=== PATIENT | female | born 1955 | race African-American/Black ===

== ENCOUNTER 2017-08-16 16:35 | Emergency (ER) | payer MEDICAID ==
[~2017-08-16] VITALS: Ht 165.1 cm; Wt 78.0 kg
[~2017-08-16 16:35] MED LIST: BACL-141 PO; DEXA4TAB PO; METH2.5T PO; NAPR500T PO; PHEN100C4 PO; TIZA4CAP6 PO; TOPI50TA24 PO
[2017-08-16 20:03] LABS: BASOPHILS % 0.9 % (0.0-2.0); EOSINOPHILS % 1.4 % (0.0-5.0); HEMATOCRIT. 37.5 % (36.0-48.0); HEMOGLOBIN. 12.5 g/dL (12.0-16.0); LYMPHOCYTES % 14.7 % (20.0-50.0); MEAN CORPUSCULAR HEMOGLOBIN 23.5 pg (28.0-32.0); MEAN CORPUSCULAR VOLUME 70.4 fL (81.0-99.0); MONOCYTES % 7.7 % (2.0-8.0); NEUTROPHILS % 75.3 % (40.0-76.0); PLATELET 218 x1000/uL (130-400); RED BLOOD CELL COUNT 5.33 mill/uL (4.2-5.4); RED CELL DISTRIBUTION WIDTH 16.5 % (11.6-14.6)
[2017-08-16 20:09] LABS: INR 1.4; PROTHROMBIN TIME 14.3 sec (9.4-11.6)
[2017-08-16 20:12] LABS: CARBON DIOXIDE 29 mEq/L (21-32); CHLORIDE 106 mEq/L (98-107)
[2017-08-16 20:36] LABS: CLARITY URINE CLOUDY (CLEAR); COLOR URINE YELLOW (YELLOW); GLUCOSE URINE NEGATIVE (NEGATIVE); KETONES URINE NEGATIVE (NEGATIVE); LEUKOCYTE ESTERASE URINE 3+ (NEGATIVE); NITRITE URINE NEGATIVE (NEGATIVE); OCCULT BLOOD URINE NEGATIVE (NEGATIVE); PH URINE 6.5 (4.5-8.0); PROTEIN URINE NEGATIVE (NEGATIVE); SPECIFIC GRAVITY URINE 1.013 (1.005-1.030)
[2017-08-16] MEDS ORDERED: CEFTRIAXONE 1 G PREMIX 50 ML IV ONE (21:15)
[2017-08-17 00:43] VITALS: BP 124/76
== END 2017-08-17 00:45 | disposition home or self-care (01) ==
LOC: ER 16:35 → CANBEDREQ 08-17 01:34
DX: N39.0 Urinary tract infection, site not specified (principal)
CPT/HCPCS: 36415; 71010; 80053; 81001; 83605; 85025; 85610; 87040; 87077; 87086; 87186; 93005; 96365; 99285; J0696; Z7610

== ENCOUNTER 2017-08-22 07:35 | Inpatient (IN) | payer MEDICAID ==
[2017-08-22] VITALS (32 sets, daily range): BP systolic 109–145; BP diastolic 66–101
[~2017-08-22] VITALS: Ht 167.6 cm; Wt 84.4 kg
[2017-08-22] MEDS ORDERED: SODIUM CHLORIDE 0.9% 1,000 ML IV ONE (08:33)
[2017-08-22 08:42] LABS: MEAN CORPUSCULAR HEMOGLOBIN 24.2 pg (28.0-32.0); MEAN CORPUSCULAR VOLUME 70.9 fL (81.0-99.0); MEAN PLATELET VOLUME 8.9 fl (7.4-10.4); PLATELET 189 x1000/uL (130-400); RED BLOOD CELL COUNT 1.77 mill/uL (4.2-5.4)
[2017-08-22 08:49] LABS: INR 1.6; PROTHROMBIN TIME 16.7 sec (9.4-11.6)
[2017-08-22 08:51] LABS: HEMATOCRIT. 12.5 % (36.0-48.0); HEMOGLOBIN. 4.3 g/dL (12.0-16.0)
[2017-08-22 08:55] LABS: CARBON DIOXIDE 23 mEq/L (21-32); CHLORIDE 104 mEq/L (98-107)
[2017-08-22 09:23] LABS: PLATELET ESTIMATE NORMAL
[2017-08-22 14:04] LABS: HEMOGLOBIN. 7.1 g/dL (12.0-16.0); MEAN CORPUSCULAR HEMOGLOBIN 25.9 pg (28.0-32.0); MEAN CORPUSCULAR VOLUME 77.2 fL (81.0-99.0); PLATELET 151 x1000/uL (130-400); RED BLOOD CELL COUNT 2.72 mill/uL (4.2-5.4); RED CELL DISTRIBUTION WIDTH 19.4 % (11.6-14.6)
[2017-08-22 14:21] LABS: NUCLEATED RED BLOOD CELLS 4 /100 WBC; PLATELET ESTIMATE NORMAL
[2017-08-22] MEDS ORDERED: ONDANSETRON HCL 4MG/2ML VIAL IV PRN (15:45)
[2017-08-22] MEDS ORDERED: IPRATROPIUM/ALBUTEROL 0.5-3(2.5)MG/3ML NEB INH PRN (15:45)
[2017-08-22] MEDS ORDERED: NICOTINE 21MG PATCH TD ONE (16:00)
[2017-08-22] MEDS: PANTOPRAZOLE SODIUM 40 MG/VIAL IV SCH (16:32)
[2017-08-22] MEDS: SODIUM CHLORIDE 0.9% 1,000 ML IV SCH (16:34)
[2017-08-22 17:32] LABS: HEMATOCRIT 20.7 % (36.0-48.0)
[2017-08-22 18:00] LABS: CREATINE KINASE 2487 IU/L (26-192)
[2017-08-22] MEDS: NICOTINE 21MG PATCH TD SCH (18:29)
[2017-08-22] MEDS: CEFTRIAXONE 2 G in DEXTROSE 5% WATER 50 ML IV SCH (18:29)
[2017-08-22 19:48] LABS: CLARITY URINE CLOUDY (CLEAR); COLOR URINE YELLOW (YELLOW); GLUCOSE URINE NEGATIVE (NEGATIVE); KETONES URINE TRACE (NEGATIVE); LEUKOCYTE ESTERASE URINE 2+ (NEGATIVE); NITRITE URINE NEGATIVE (NEGATIVE); OCCULT BLOOD URINE 3+ (NEGATIVE); PH URINE 5.5 (4.5-8.0); PROTEIN URINE 1+ (NEGATIVE); UROBILINOGEN URINE 0.2 E.U./dL (0.2-1.0)
[2017-08-22 20:29] LABS: *AMPHETAMINES SCREEN URINE NEGATIVE (NEGATIVE); *BARBITURATES SCREEN URINE NEGATIVE (NEGATIVE); *BENZODIAZEPINES SCREEN URINE PRESUMTIVE POSITIVE (NEGATIVE); *COCAINE SCREEN URINE NEGATIVE (NEGATIVE); CANNABINOID URINE SCREEN NEGATIVE (NEGATIVE); METHADONE URINE SCREEN NEGATIVE (NEGATIVE); OPIATES URINE SCREEN PRESUMTIVE POSITIVE (NEGATIVE); PHENCYCLIDINE URINE SCREEN NEGATIVE (NEGATIVE)
[2017-08-22 23:25] LABS: HEMATOCRIT 21.6 % (36.0-48.0); HEMOGLOBIN 7.6 g/dL (12.0-16.0)
[2017-08-22 23:48] LABS: CREATINE KINASE MB FRACTION 8.1 ng/mL (0.5-3.6)
[2017-08-22 23:55] LABS: TROPONIN I 0.74 ng/mL (0.00-0.04)
[2017-08-23] VITALS (62 sets, daily range): BP systolic 113–162; BP diastolic 65–106
[2017-08-23 06:16] LABS: HEMATOCRIT. 22.3 % (36.0-48.0); HEMOGLOBIN. 7.5 g/dL (12.0-16.0); MEAN CORPUSCULAR VOLUME 79.9 fL (81.0-99.0); MEAN PLATELET VOLUME 8.6 fl (7.4-10.4); PLATELET 141 x1000/uL (130-400); RED BLOOD CELL COUNT 2.79 mill/uL (4.2-5.4); RED CELL DISTRIBUTION WIDTH 19.8 % (11.6-14.6)
[2017-08-23 07:06] LABS: CREATINE KINASE MB FRACTION 7.2 ng/mL (0.5-3.6)
[2017-08-23 07:39] LABS: TROPONIN I 0.52 ng/mL (0.00-0.04)
[2017-08-23 09:40] LABS: HEMATOCRIT 23.3 % (36.0-48.0); HEMOGLOBIN 7.7 g/dL (12.0-16.0)
[2017-08-23] MEDS ORDERED: ACETAMINOPHEN 650MG/20.3ML UDC PO PRN (09:45)
[2017-08-23] MEDS: ACETAMINOPHEN 325MG TABLET PO PRN ×2 (09:59→23:56)
[2017-08-23] MEDS: PANTOPRAZOLE SODIUM 40 MG/VIAL IV SCH (09:59)
[2017-08-23 12:08] LABS: T4 FREE 0.84 ng/dL (0.76-1.46)
[2017-08-23 12:17] LABS: HEMATOCRIT 23.1 % (36.0-48.0); HEMOGLOBIN 7.7 g/dL (12.0-16.0)
[2017-08-23 14:30] LABS: NUCLEATED RED BLOOD CELLS 7 /100 WBC
[2017-08-23 14:31] LABS: PLATELET ESTIMATE NORMAL
[2017-08-23 16:47] LABS: CREATINE KINASE MB FRACTION 4.4 ng/mL (0.5-3.6); TROPONIN I 0.28 ng/mL (0.00-0.04)
[2017-08-23] MEDS: CEFTRIAXONE 2 G in DEXTROSE 5% WATER 50 ML IV SCH (17:37)
[2017-08-23] MEDS: NICOTINE 21MG PATCH TD SCH (17:38)
[2017-08-23] MEDS: SODIUM CHLORIDE 0.9% 1,000 ML IV SCH (23:28)
[2017-08-24] VITALS (71 sets, daily range): BP systolic 116–155; BP diastolic 63–115
[2017-08-24 01:22] LABS: CREATINE KINASE MB FRACTION 2.7 ng/mL (0.5-3.6); TROPONIN I 0.22 ng/mL (0.00-0.04)
[2017-08-24 05:23] LABS: HEMATOCRIT. 21.9 % (36.0-48.0); HEMOGLOBIN. 7.4 g/dL (12.0-16.0); MEAN CORPUSCULAR HEMOGLOBIN 27.2 pg (28.0-32.0); MEAN CORPUSCULAR VOLUME 80.9 fL (81.0-99.0); MEAN PLATELET VOLUME 8.4 fl (7.4-10.4); PLATELET 167 x1000/uL (130-400); RED BLOOD CELL COUNT 2.71 mill/uL (4.2-5.4)
[2017-08-24 06:11] LABS: CARBON DIOXIDE 27 mEq/L (21-32); CHLORIDE 109 mEq/L (98-107); CREATINE KINASE MB FRACTION 2.6 ng/mL (0.5-3.6); TROPONIN I 0.19 ng/mL (0.00-0.04)
[2017-08-24 06:21] LABS: CREATINE KINASE 1127 IU/L (26-192)
[2017-08-24] MEDS: PANTOPRAZOLE SODIUM 40 MG/VIAL IV SCH (09:19)
[2017-08-24 12:53] LABS: NUCLEATED RED BLOOD CELLS 10 /100 WBC; PLATELET ESTIMATE NORMAL
[2017-08-24 17:45] LABS: HEMATOCRIT. 27.9 % (36.0-48.0); HEMOGLOBIN. 9.5 g/dL (12.0-16.0); MEAN CORPUSCULAR HEMOGLOBIN 27.8 pg (28.0-32.0); MEAN CORPUSCULAR VOLUME 81.2 fL (81.0-99.0); MEAN PLATELET VOLUME 7.6 fl (7.4-10.4); PLATELET 170 x1000/uL (130-400); RED BLOOD CELL COUNT 3.43 mill/uL (4.2-5.4); RED CELL DISTRIBUTION WIDTH 19.1 % (11.6-14.6)
[2017-08-24] MEDS: NICOTINE 21MG PATCH TD SCH (18:14)
[2017-08-24] MEDS: CEFTRIAXONE 2 G in DEXTROSE 5% WATER 50 ML IV SCH (18:14)
[2017-08-24 18:23] LABS: NUCLEATED RED BLOOD CELLS 13 /100 WBC; PLATELET ESTIMATE NORMAL
[2017-08-24] MEDS: ACETAMINOPHEN 325MG TABLET PO PRN (18:30)
[2017-08-24] MEDS: SODIUM CHLORIDE 0.9% 1,000 ML IV SCH (22:20)
[2017-08-25] VITALS (64 sets, daily range): BP systolic 79–166; BP diastolic 31–105
[2017-08-25 05:14] LABS: HEMOGLOBIN 10.4 g/dL (12.0-16.0)
[2017-08-25 05:27] LABS: CARBON DIOXIDE 24 mEq/L (21-32); CHLORIDE 108 mEq/L (98-107)
[2017-08-25 05:32] LABS: HEMATOCRIT 30.4 % (36.0-48.0); MEAN CORPUSCULAR HEMOGLOBIN 27.9 pg (28.0-32.0); MEAN CORPUSCULAR VOLUME 81.6 fL (81.0-99.0); PLATELET 199 x1000/uL (130-400); RED BLOOD CELL COUNT 3.73 mill/uL (4.2-5.4); RED CELL DISTRIBUTION WIDTH 19.5 % (11.6-14.6)
[2017-08-25] MEDS ORDERED: POTASSIUM CHLORIDE 20MEQ TABLET SR PO NR (09:02)
[2017-08-25 09:07] LABS: CREATINE KINASE 717 IU/L (26-192)
[2017-08-25] MEDS: PANTOPRAZOLE SODIUM 40 MG/VIAL IV SCH (10:00)
[2017-08-25] MEDS: DOCUSATE SODIUM 100MG CAPSULE PO SCH (12:36)
[2017-08-25 13:56] LABS: INR 1.4; PROTHROMBIN TIME 15.1 sec (9.4-11.6)
[2017-08-25] MEDS: CEFTRIAXONE 2 G in DEXTROSE 5% WATER 50 ML IV SCH (18:23)
[2017-08-25] MEDS: NICOTINE 21MG PATCH TD SCH (18:24)
[2017-08-26] VITALS: BP 133/82
[2017-08-26] MEDS: ACETAMINOPHEN 325MG TABLET PO PRN (00:20)
[2017-08-26 08:00] VITALS: BP 113/74
[2017-08-26] MEDS: DOCUSATE SODIUM 100MG CAPSULE PO SCH (09:00)
[2017-08-26] MEDS: PANTOPRAZOLE SODIUM 40 MG/VIAL IV SCH (09:39)
[2017-08-26 10:10] LABS: HEMOGLOBIN. 10.8 g/dL (12.0-16.0); MEAN CORPUSCULAR HEMOGLOBIN 27.1 pg (28.0-32.0); MEAN CORPUSCULAR VOLUME 82.7 fL (81.0-99.0); MEAN PLATELET VOLUME 8.6 fl (7.4-10.4); PLATELET 256 x1000/uL (130-400); RED BLOOD CELL COUNT 3.99 mill/uL (4.2-5.4)
[2017-08-26 10:21] LABS: CARBON DIOXIDE 27 mEq/L (21-32); CHLORIDE 104 mEq/L (98-107); PHOSPHORUS 2.2 mg/dL (2.5-4.9)
[2017-08-26] MEDS ORDERED: POTASSIUM PHOS,M-BASIC-D-BASIC 15 MMOL in DEXT 5% WATER 245 ML IV SCH (11:30)
[2017-08-26 12:00] VITALS: BP 134/89
[2017-08-26 16:00] VITALS: BP 141/96
[2017-08-26] MEDS: CEFTRIAXONE 2 G in DEXTROSE 5% WATER 50 ML IV SCH (17:07)
[2017-08-26 20:00] VITALS: BP 118/82
[2017-08-26] MEDS: NICOTINE 21MG PATCH TD SCH (22:17)
[2017-08-27] VITALS: BP 167/65
[2017-08-27 04:00] VITALS: BP 130/86
[2017-08-27 06:19] LABS: NUCLEATED RED BLOOD CELLS 3 /100 WBC; PLATELET ESTIMATE NORMAL
[2017-08-27 06:30] LABS: HEMATOCRIT. 33.1 % (36.0-48.0); HEMOGLOBIN. 10.8 g/dL (12.0-16.0); MEAN CORPUSCULAR HEMOGLOBIN 27.1 pg (28.0-32.0); MEAN CORPUSCULAR VOLUME 83.1 fL (81.0-99.0); MEAN PLATELET VOLUME 8.4 fl (7.4-10.4); PLATELET 306 x1000/uL (130-400); RED BLOOD CELL COUNT 3.99 mill/uL (4.2-5.4); RED CELL DISTRIBUTION WIDTH 20.9 % (11.6-14.6)
[2017-08-27 06:32] LABS: CHLORIDE 106 mEq/L (98-107)
[2017-08-27 06:38] LABS: CARBON DIOXIDE 26 mEq/L (21-32)
[2017-08-27 08:00] VITALS: BP 129/83
[2017-08-27] MEDS: DOCUSATE SODIUM 100MG CAPSULE PO SCH (09:00)
[2017-08-27] MEDS: PANTOPRAZOLE SODIUM 40 MG/VIAL IV SCH (09:26)
[2017-08-27 09:52] LABS: ATYPICAL LYMPHOCYTES 1; NUCLEATED RED BLOOD CELLS 4 /100 WBC; PLATELET ESTIMATE NORMAL
[2017-08-27 11:54] VITALS: BP 114/80
[2017-08-27 15:42] VITALS: BP 18/73
[2017-08-27 15:55] VITALS: BP 117/73
[2017-08-27] MEDS ORDERED: POTASSIUM PHOS,M-BASIC-D-BASIC 20 MMOL in DEXT 5% WATER 243.3333 ML IV NR (16:00)
[2017-08-27] MEDS ORDERED: FAMOTIDINE 20MG TABLET PO SCH (21:00)
== END 2017-08-27 17:10 | disposition home or self-care (01) | DRG 253 ==
LOC: ER 07:35 → MICUSO 09:55 → EDBEDREQ 09:56 → EDBEDREQSVC 09:56 → EDBEDREQTM 09:56 → ENRESERV 13:48 → 8WST 08-25 16:53
PROVIDERS: ADMIT Internal Medicine; ATTEND Internal Medicine
PROC: 30233L1 Transfusion of Nonautologous Fresh Plasma into Peripheral Vein, Percutaneous Approach (ICD-10-PCS; principal; 2017-08-22)
PROC: 30233N1 Transfusion of Nonautologous Red Blood Cells into Peripheral Vein, Percutaneous Approach (ICD-10-PCS; 2017-08-22)
PROC: 30233K1 Transfusion of Nonautologous Frozen Plasma into Peripheral Vein, Percutaneous Approach (ICD-10-PCS; 2017-08-22)
DX: K66.1 Hemoperitoneum (principal); N17.0 Acute kidney failure with tubular necrosis; R57.8 Other shock; N18.6 End stage renal disease; I12.0 Hypertensive chronic kidney disease with stage 5 chronic kidney disease or end stage renal disease; D68.9 Coagulation defect, unspecified; S36.09XA Other injury of spleen, initial encounter; M62.82 Rhabdomyolysis; G40.909 Epilepsy, unspecified, not intractable, without status epilepticus; D62 Acute posthemorrhagic anemia; D50.9 Iron deficiency anemia, unspecified; E11.22 Type 2 diabetes mellitus with diabetic chronic kidney disease; C50.919 Malignant neoplasm of unspecified site of unspecified female breast; F19.10 Other psychoactive substance abuse, uncomplicated; D63.8 Anemia in other chronic diseases classified elsewhere; G35 Multiple sclerosis; W18.39XA Other fall on same level, initial encounter; E83.39 Other disorders of phosphorus metabolism; F09 Unspecified mental disorder due to known physiological condition; F17.210 Nicotine dependence, cigarettes, uncomplicated; N39.0 Urinary tract infection, site not specified; Z80.0 Family history of malignant neoplasm of digestive organs; Z86.73 Personal history of transient ischemic attack (TIA), and cerebral infarction without residual deficits; Y93.89 Activity, other specified; Y92.89 Other specified places as the place of occurrence of the external cause; Y99.8 Other external cause status; Z92.21 Personal history of antineoplastic chemotherapy; Z22.322 Carrier or suspected carrier of Methicillin resistant Staphylococcus aureus; Z79.899 Other long term (current) drug therapy
CPT/HCPCS: 36415; 36430; 71010; 74176; 76770; 80048; 80053; 80061; 80305; 81001; 82550; 82553; 82728; 83036; 83540; 83550; 83605; 83690; 83735; 83880; 84100; 84439; 84443; 84484; 85014; 85018; 85025; 85027; 85044; 85379; 85610; 86850; 86900; 86920; 86927; 87040; 87086; 93005; 93306; 93970; 97112; 97116; 97162; 97530; 99285; C9113; J0696; J2405; J3490; J7030; J7050; J7060; P9016; P9017

== ENCOUNTER 2018-10-23 18:11 | Emergency (ER) | payer MEDICAID ==
[~2018-10-23] VITALS: Ht 167.6 cm; Wt 82.0 kg
[~2018-10-23 18:11] MED LIST changes: +NAPR-1176 PO; -NAPR500T PO
[2018-10-23] MEDS ORDERED: LEVETIRACETAM 500MG PREMIX 100 ML IV ONE (19:00)
[2018-10-23] MEDS ORDERED: SODIUM CHLORIDE 0.9% 1,000 ML IV ONE (19:14)
[2018-10-23 19:48] LABS: BASOPHILS % 0.8 % (0.0-2.0); HEMATOCRIT. 37.6 % (36.0-48.0); HEMOGLOBIN. 12.1 g/dL (12.0-16.0); LYMPHOCYTES % 18.7 % (20.0-50.0); MEAN CORPUSCULAR VOLUME 71.5 fL (81.0-99.0); MEAN PLATELET VOLUME 9.7 fl (7.4-10.4); MONOCYTES % 9.7 % (2.0-8.0); NEUTROPHILS % 68.8 % (40.0-76.0); PLATELET 254 x1000/uL (130-400); RED BLOOD CELL COUNT 5.26 mill/uL (4.2-5.4); RED CELL DISTRIBUTION WIDTH 16.1 % (11.6-14.6)
[2018-10-23 20:00] LABS: CARBAMAZEPINE < 0.5 ug/mL (4-12); PHENOBARBITAL < 2.1 ug/mL (15.0-40.0); VALPROIC ACID < 3.0 ug/mL (50-100)
[2018-10-23 21:10] LABS: CHLORIDE 107 mEq/L (98-107)
[2018-10-23 21:12] LABS: INR 1.3; PROTHROMBIN TIME 13.1 sec (9.1-11.1)
[2018-10-23] MEDS ORDERED: IBUPROFEN 600MG TABLET PO ONE (21:45)
[2018-10-23 22:00] VITALS: BP 97/74
== END 2018-10-23 22:00 | disposition home or self-care (01) ==
LOC: ER 18:11
DX: R56.9 Unspecified convulsions (principal); I10 Essential (primary) hypertension; J44.9 Chronic obstructive pulmonary disease, unspecified; G35 Multiple sclerosis; F17.200 Nicotine dependence, unspecified, uncomplicated; Z91.14 Patient's other noncompliance with medication regimen
CPT/HCPCS: 36415; 71045; 80053; 80156; 80165; 80184; 80185; 85025; 85610; 85730; 93005; 96365; 96366; 99284; J1953; J7030

== ENCOUNTER 2023-09-30 16:01 | Emergency (ER) | payer MEDICAID ==
[~2023-09-30] VITALS: Ht 167.6 cm; Wt 68.5 kg
[~2023-09-30 16:01] MED LIST changes: +TOPI-255 PO; -TOPI50TA24 PO
[2023-09-30 16:05] VITALS: O2SAT 98
[2023-09-30] MEDS ORDERED: LORAZEPAM 2MG/ML CPJ IV ONE (16:15)
[2023-09-30] MEDS ORDERED: LEVETIRACETAM 1000MG PREMIX 100 ML IV ONE (16:15)
[2023-09-30] MEDS ORDERED: SODIUM CHLORIDE 0.9% 500 ML IV ONE (16:15)
[2023-09-30] MEDS ORDERED: LORAZEPAM 4MG/ML VIAL ONE (16:39)
[2023-09-30 16:41] LABS: BASOPHILS % 0.6 % (0.0-2.0); DIFFERENTIAL COMMENT 0; EOSINOPHILS % 0.5 % (0.0-5.0); HEMATOCRIT. 35.9 % (36.0-48.0); HEMOGLOBIN. 11.3 g/dL (12.0-16.0); MEAN CORPUSCULAR HEMOGLOBIN 22.9 pg (28.0-32.0); MEAN CORPUSCULAR HGB CONC 31.4 g/dL (31.0-37.0); MEAN CORPUSCULAR VOLUME 72.9 fL (81.0-99.0); MEAN PLATELET VOLUME 9.1 fl (7.4-10.4); MONOCYTES % 5.4 % (2.0-8.0); NEUTROPHILS % 82.5 % (40.0-76.0); PLATELET 313 x1000/uL (130-400); RED BLOOD CELL COUNT 4.93 mill/uL (4.2-5.4); RED CELL DISTRIBUTION WIDTH 16.2 % (11.6-14.6); WHITE BLOOD COUNT 10.4 x1000/uL (4.5-11.0)
[2023-09-30 17:07] LABS: ALANINE AMINOTRANSFERASE < 7 IU/L (10-49); ASPARTATE AMINOTRANSFERASE 12 IU/L (<34); BILIRUBIN TOTAL 0.5 mg/dL (0.1-1.0); CARBON DIOXIDE 27 mEq/L (21-32); CHLORIDE 109 mEq/L (98-107); CREATININE 0.9 mg/dL (0.6-1.0); GLUCOSE 90 mg/dL (70-105); POTASSIUM 4.3 mEq/L (3.5-5.1); PROTEIN TOTAL 7.3 g/dL (6.0-8.3); SODIUM 143 mEq/L (136-145); UREA NITROGEN BLOOD 20 mg/dL (9-23)
[2023-09-30 17:15] LABS: ETHANOL BLOOD < 10 mg/dL (<10)
[2023-09-30 22:38] LABS: *AMPHETAMINES SCREEN URINE NEGATIVE (NEGATIVE); *BARBITURATES SCREEN URINE NEGATIVE (NEGATIVE); *BENZODIAZEPINES SCREEN URINE NEGATIVE (NEGATIVE); *COCAINE SCREEN URINE NEGATIVE (NEGATIVE); CANNABINOID URINE SCREEN PRESUMPTIVE POSITIVE (NEGATIVE); ECSTASY MDMA SCREEN URINE NEGATIVE (NEGATIVE); METHADONE URINE SCREEN Neg (NEGATIVE); OPIATES URINE SCREEN NEGATIVE (NEGATIVE); PHENCYCLIDINE URINE SCREEN NEGATIVE (NEGATIVE)
[2023-09-30] MEDS ORDERED: ACETAMINOPHEN 325MG TABLET PO ONE (22:45)
[2023-09-30 22:47] LABS: CLARITY URINE CLEAR (CLEAR); COLOR URINE YELLOW (YELLOW); GLUCOSE URINE NEGATIVE (NEGATIVE); KETONES URINE TRACE (NEGATIVE); NITRITE URINE NEGATIVE (NEGATIVE); OCCULT BLOOD URINE NEGATIVE (NEGATIVE); PH URINE 7.5 (4.5-8.0); PROTEIN URINE NEGATIVE (NEGATIVE); SPECIFIC GRAVITY URINE 1.015 (1.005-1.030); UROBILINOGEN URINE 0.2 E.U./dL (0.2-1.0)
[2023-09-30 22:48] LABS: LEUKOCYTE ESTERASE URINE 1+ (NEGATIVE)
[2023-09-30 22:51] LABS: BACTERIA URINE 1+; RBC URINE 0-2 /hpf (0-2); SQUAMOUS EPITHELIAL CELL URINE 1+ /lpf (RARE/1+)
[2023-09-30] MEDS ORDERED: KEPP500 MT (23:11)
[2023-09-30] MEDS ORDERED: CEFP200T13 MT (23:11)
[2023-09-30] MEDS ORDERED: CEFTRIAXONE 1GM PREMIX 50 ML IV ONE (23:15)
[2023-10-01 00:33] VITALS: BP 146/90; PULSE 62; RESP 16; TEMP 98.7
== END 2023-10-01 02:03 | disposition home or self-care (01) ==
LOC: ER 16:01
DX: R56.9 Unspecified convulsions (principal); N39.0 Urinary tract infection, site not specified; K21.9 Gastro-esophageal reflux disease without esophagitis; I10 Essential (primary) hypertension; Z85.9 Personal history of malignant neoplasm, unspecified; Z79.899 Other long term (current) drug therapy
CPT/HCPCS: 80053; 80305; 81003; 80320; 85025; 36415; 96368; 96375; 99285; 96365; 96366; J1953; J0696; J2060; J7040; Z7610 ×2; G0480

== ENCOUNTER 2025-01-01 07:32 | Inpatient (IN) | payer BC, OTHER, MEDICARE ==
[~2025-01-01] VITALS: Ht 167.6 cm; Wt 63.5 kg
[~2025-01-01 07:32] MED LIST changes: +CEFP200T13 MT; +KEPP500 MT; -TOPI-255 PO; +TOPI-95 PO
[2025-01-01] MEDS: IOHEXOL-350 100 ML BOTTLE ONE (08:12)
[2025-01-01 08:18] LABS: CHLORIDE 110 mEq/L (98-107); POTASSIUM 4.3 mEq/L (3.5-5.1); SODIUM 140 mEq/L (136-145)
[2025-01-01 08:19] LABS: CARBON DIOXIDE 25 mEq/L (21-32)
[2025-01-01 08:21] LABS: BASOPHILS % 0.4 % (0.0-2.0); DIFFERENTIAL COMMENT 0; EOSINOPHILS % 0.2 % (0.0-5.0); HEMATOCRIT. 28.6 % (36.0-48.0); HEMOGLOBIN. 9.1 g/dL (12.0-16.0); LYMPHOCYTES % 7.4 % (20.0-50.0); MEAN PLATELET VOLUME 9.1 fl (7.4-10.4); MONOCYTES % 7.5 % (2.0-8.0); NEUTROPHILS % 84.5 % (40.0-76.0); PLATELET 206 x1000/uL (130-400); RED BLOOD CELL COUNT 3.98 mill/uL (4.2-5.4); RED CELL DISTRIBUTION WIDTH 16.1 % (11.6-14.6); WHITE BLOOD COUNT 8.2 x1000/uL (4.5-11.0)
[2025-01-01 08:23] LABS: INR 1.2; PROTHROMBIN TIME 13.5 sec (9.6-11.0)
[2025-01-01 08:24] LABS: GLUCOSE 113 mg/dL (70-105); UREA NITROGEN BLOOD 24 mg/dL (9-23)
[2025-01-01 08:31] LABS: ETHANOL BLOOD < 10 mg/dL (<10); TROPONIN I HIGH SENSITIVITY 148 ng/L (3.0-34)
[2025-01-01] MEDS: LEVETIRACETAM 1000MG PREMIX 100 ML IV ONE (09:06)
[2025-01-01 09:40] VITALS: BP 118/86; PULSE 88; RESP 14; TEMP 36.4
[2025-01-01] MEDS ORDERED: IPRATROPIUM/ALBUTEROL 0.5-3(2.5)MG/3ML NEB HHN PRN (10:30)
[2025-01-01] MEDS ORDERED: CLONIDINE 0.1MG TABLET PO PRN (10:30)
[2025-01-01] MEDS ORDERED: ACETAMINOPHEN 325MG TABLET PO PRN ×2 (10:30)
[2025-01-01] MEDS ORDERED: ONDANSETRON HCL 4MG/2ML INJ IV PRN (10:30)
[2025-01-01] MEDS ORDERED: DOCUSATE SODIUM 100MG CAPSULE PO PRN (10:30)
[2025-01-01] MEDS ORDERED: LORAZEPAM 2MG/ML INJ IV PRN (11:00)
[2025-01-01 11:30] LABS: IRON 72 ug/dL (50-170)
[2025-01-01 11:32] LABS: PHENYTOIN < 2.0 ug/mL (10-20)
[2025-01-01 11:33] LABS: TOTAL IRON BINDING CAPACITY 250 ug/dl (250-425)
[2025-01-01] MEDS: ENOXAPARIN 40MG/0.4ML SYR SUBCUT SCH (11:53)
[2025-01-01] MEDS: CEFTRIAXONE 1GM/50ML 50 ML IV SCH (11:53)
[2025-01-01] MEDS: DEXT 5%/0.45% NACL 1000ML 1,000 ML IV SCH (11:53)
[2025-01-01 11:56] LABS: FERRITIN 13 ng/mL (10-291); FOLIC ACID (FOLATE) SERUM 8.59 ng/mL (>5.38)
[2025-01-01 11:57] LABS: VITAMIN B12 SERUM 720 pg/mL (211-911)
[2025-01-01 12:00] VITALS: BP 125/89; PULSE 82; RESP 16; TEMP 37; O2SAT 97
[2025-01-01 16:00] VITALS: BP 129/80; PULSE 75; RESP 16; TEMP 36.8; O2SAT 97
[2025-01-01] MEDS: FERROUS SULFATE 325MG TABLET PO SCH (18:25)
[2025-01-01 19:31] LABS: CREATINE KINASE 407 IU/L (34-145)
[2025-01-01 19:40] LABS: TROPONIN I HIGH SENSITIVITY 2618 ng/L (3.0-34)
[2025-01-01 20:00] VITALS: BP 121/85; PULSE 79; RESP 16; TEMP 36.3; O2SAT 96
[2025-01-01] MEDS ORDERED: LEVETIRACETAM 1,000MG in NACL 100ML PREMIX IV SCH (21:00)
[2025-01-01] MEDS: LEVETIRACETAM 1000MG PREMIX 100 ML IV SCH (21:07)
[2025-01-01] MEDS: ATORVASTATIN CALCIUM 40MG TABLET PO SCH (21:18)
[2025-01-02] VITALS: BP 120/89; PULSE 79; RESP 16; TEMP 37; O2SAT 97
[2025-01-02 04:00] VITALS: BP 122/80; PULSE 63; RESP 16; TEMP 36.2; O2SAT 96
[2025-01-02] MEDS: ENOXAPARIN 60MG/0.6ML SYR SUBCUT SCH (06:00)
[2025-01-02 06:14] LABS: BASOPHILS % 0.5 % (0.0-2.0); DIFFERENTIAL COMMENT 0; EOSINOPHILS % 0.3 % (0.0-5.0); HEMATOCRIT. 33.8 % (36.0-48.0); HEMOGLOBIN. 10.6 g/dL (12.0-16.0); LYMPHOCYTES % 11.3 % (20.0-50.0); MEAN CORPUSCULAR HGB CONC 31.4 g/dL (31.0-37.0); MEAN CORPUSCULAR VOLUME 70.2 fL (81.0-99.0); MEAN PLATELET VOLUME 9.7 fl (7.4-10.4); MONOCYTES % 9.2 % (2.0-8.0); NEUTROPHILS % 78.7 % (40.0-76.0); PLATELET 212 x1000/uL (130-400); RED BLOOD CELL COUNT 4.81 mill/uL (4.2-5.4); RED CELL DISTRIBUTION WIDTH 16.1 % (11.6-14.6); WHITE BLOOD COUNT 12.1 x1000/uL (4.5-11.0)
[2025-01-02 06:45] LABS: CHLORIDE 108 mEq/L (98-107); POTASSIUM 3.7 mEq/L (3.5-5.1); SODIUM 141 mEq/L (136-145)
[2025-01-02 06:46] LABS: CARBON DIOXIDE 22 mEq/L (21-32)
[2025-01-02 06:51] LABS: CREATININE 0.9 mg/dL (0.6-1.0); GLUCOSE 98 mg/dL (70-105); TRIGLYCERIDE 77 mg/dL (0-150); UREA NITROGEN BLOOD 12 mg/dL (9-23)
[2025-01-02 06:52] LABS: LDL CHOLESTEROL 90 mg/dL (5-100)
[2025-01-02 06:53] LABS: ALANINE AMINOTRANSFERASE 63 IU/L (10-49); ALBUMIN 3.6 g/dL (3.2-4.8); ASPARTATE AMINOTRANSFERASE 55 IU/L (<34); BILIRUBIN DIRECT 0.4 mg/dL (<=3.0); BILIRUBIN TOTAL 1.4 mg/dL (0.1-1.0); CHOLESTEROL 184 mg/dL (<200); CREATINE KINASE 447 IU/L (34-145); HDL CHOLESTEROL 69 mg/dL (>65); PROTEIN TOTAL 6.3 g/dL (6.0-8.3)
[2025-01-02 07:11] LABS: T4 FREE 1.02 ng/dL (0.89-1.76)
[2025-01-02] MEDS ORDERED: NITROGLYCERIN 0.4MG TABLET SL SL PRN (07:45)
[2025-01-02 08:00] VITALS: BP 131/92; PULSE 76; RESP 18; TEMP 36.3; O2SAT 98
[2025-01-02] MEDS: THIAMINE HCL 100MG TABLET PO SCH (08:41)
[2025-01-02] MEDS: ASPIRIN 81MG TABLET PO SCH (08:43)
[2025-01-02] MEDS: METOPROLOL TARTRATE 25MG TABLET PO SCH (08:43)
[2025-01-02] MEDS: PANTOPRAZOLE SODIUM 40 MG/VIAL IV SCH (08:43)
[2025-01-02 09:21] LABS: TROPONIN I HIGH SENSITIVITY 3948 ng/L (3.0-34)
[2025-01-02 12:00] VITALS: BP 104/66; PULSE 71; RESP 16; TEMP 36.7; O2SAT 98
[2025-01-02 16:00] VITALS: BP 137/92; PULSE 73; RESP 18; TEMP 36.6; O2SAT 98
[2025-01-02 20:00] VITALS: BP 122/74; PULSE 91; RESP 17; TEMP 36.3; O2SAT 100
[2025-01-03 04:00] VITALS: BP 122/89; PULSE 69; RESP 12; TEMP 36.2; O2SAT 100
[2025-01-03] MEDS: METOPROLOL TARTRATE 50MG TABLET PO SCH (11:13)
[2025-01-03 17:09] LABS: CLARITY URINE CLOUDY (CLEAR); COLOR URINE YELLOW (YELLOW); GLUCOSE URINE NEGATIVE (NEGATIVE); KETONES URINE TRACE (NEGATIVE); LEUKOCYTE ESTERASE URINE 3+ (NEGATIVE); NITRITE URINE NEGATIVE (NEGATIVE); OCCULT BLOOD URINE TRACE (NEGATIVE); PH URINE 6.5 (4.5-8.0); PROTEIN URINE TRACE (NEGATIVE); SPECIFIC GRAVITY URINE 1.022 (1.005-1.030)
[2025-01-03 17:28] LABS: *AMPHETAMINES SCREEN URINE NEGATIVE (NEGATIVE); *BENZODIAZEPINES SCREEN URINE PRESUMPTIVE POSITIVE (NEGATIVE)
[2025-01-03 17:29] LABS: *BARBITURATES SCREEN URINE NEGATIVE (NEGATIVE); *COCAINE SCREEN URINE NEGATIVE (NEGATIVE); CANNABINOID URINE SCREEN PRESUMPTIVE POSITIVE (NEGATIVE); ECSTASY MDMA SCREEN URINE NEGATIVE (NEGATIVE); METHADONE URINE SCREEN NEGATIVE (NEGATIVE); OPIATES URINE SCREEN NEGATIVE (NEGATIVE); PHENCYCLIDINE URINE SCREEN NEGATIVE (NEGATIVE)
[2025-01-03 17:34] LABS: BACTERIA URINE TRACE; RBC URINE 0-2 /hpf (0-2); SQUAMOUS EPITHELIAL CELL URINE 1+ /lpf (RARE/1+); WBC URINE 25-50 /hpf (0-2)
[2025-01-03 20:00] VITALS: BP 105/78; PULSE 66; RESP 17; TEMP 36.5; O2SAT 98
[2025-01-03] MEDS: LEVETIRACETAM 500MG TABLET PO SCH (21:20)
[2025-01-04] VITALS: BP 116/84; PULSE 67; RESP 18; TEMP 36.2; O2SAT 100
[2025-01-04 04:00] VITALS: BP 107/71; PULSE 66; RESP 18; TEMP 36.3; O2SAT 99
[2025-01-04 08:00] VITALS: BP 117/77; PULSE 65; RESP 16; TEMP 36.8; O2SAT 98
[2025-01-04] MEDS ORDERED: REGADENOSON 0.4 MG/5 ML IV NR (10:00)
[2025-01-04 12:00] VITALS: BP 106/75; PULSE 66; RESP 16; TEMP 36.4; O2SAT 98
[2025-01-04 12:44] LABS: TROPONIN I HIGH SENSITIVITY 773 ng/L (3.0-34)
[2025-01-04 16:00] VITALS: BP 113/80; PULSE 73; RESP 16; TEMP 36.5; O2SAT 98
[2025-01-04 17:55] LABS: TROPONIN I HIGH SENSITIVITY 622 ng/L (3.0-34)
[2025-01-04 20:00] VITALS: BP 108/52; PULSE 77; RESP 17; TEMP 36.3; O2SAT 100
[2025-01-04 22:04] LABS: TROPONIN I HIGH SENSITIVITY 609 ng/L (3.0-34)
[2025-01-05] VITALS: BP 99/60; PULSE 74; RESP 16; TEMP 36.1; O2SAT 98
[2025-01-05 04:00] VITALS: BP 128/84; PULSE 68; RESP 16; TEMP 36.8; O2SAT 96
[2025-01-05 08:00] VITALS: BP 128/89; PULSE 68; RESP 18; TEMP 36.4; O2SAT 95
[2025-01-05] MEDS: ENOXAPARIN 40MG/0.4ML SYR SUBCUT SCH (09:25)
[2025-01-05 12:00] VITALS: BP 110/68; PULSE 68; RESP 17; TEMP 36.3; O2SAT 98
[2025-01-05] MEDS ORDERED: ASPI-1160 PO (12:07)
[2025-01-05] MEDS ORDERED: KEPP500 PO (12:07)
[2025-01-05] MEDS ORDERED: LIP40 PO (12:07)
[2025-01-05 15:12] VITALS: BP 108/71; PULSE 63; TEMP 97.9; O2SAT 98
[2025-01-05 16:00] VITALS: BP 108/81; PULSE 69; RESP 16; TEMP 36.2; O2SAT 98
== END 2025-01-05 16:34 | disposition home or self-care (01) | DRG 100 ==
LOC: ER 07:32 → 5WST 08:56 → EDBEDREQ 08:58
PROVIDERS: ADMIT Internal Medicine; ATTEND Internal Medicine
PROC: 4A00X4Z Measurement of Central Nervous Electrical Activity, External Approach (ICD-10-PCS; principal; 2025-01-03)
DX: G40.909 Epilepsy, unspecified, not intractable, without status epilepticus (principal); I21.4 Non-ST elevation (NSTEMI) myocardial infarction; I69.354 Hemiplegia and hemiparesis following cerebral infarction affecting left non-dominant side; Z91.148 Patient's other noncompliance with medication regimen for other reason; D50.9 Iron deficiency anemia, unspecified; F12.90 Cannabis use, unspecified, uncomplicated; I10 Essential (primary) hypertension; R32 Unspecified urinary incontinence; J44.9 Chronic obstructive pulmonary disease, unspecified; I25.2 Old myocardial infarction; Z79.82 Long term (current) use of aspirin; Z79.899 Other long term (current) drug therapy; Z80.0 Family history of malignant neoplasm of digestive organs; Z85.3 Personal history of malignant neoplasm of breast; Z87.891 Personal history of nicotine dependence
CPT/HCPCS: 36415; 70496; 70498; 71045; 80048; 80061; 80076; 80185; 80305; 80320; 81003; 82542; 82550; 82553; 82607; 82728; 82746; 83036; 83540; 83550; 83605; 84145; 84439; 84443; 84481; 84484; 85025; 93005; 93970; 95816; 97166; 99291; A4606; J0696; J1650; J1953; J2470; Q9967; G0480

== ENCOUNTER 2025-01-07 12:24 | Emergency (ER) | payer BC, OTHER ==
[~2025-01-07] VITALS: Ht 170.2 cm; Wt 70.0 kg
[~2025-01-07 12:24] MED LIST changes: +ASPI-1160 PO; -CEFP200T13 MT; -DEXA4TAB PO; -KEPP500 MT; +KEPP500 PO; +LIP40 PO; -NAPR-1176 PO; -PHEN100C4 PO; -TIZA4CAP6 PO; -TOPI-95 PO
[2025-01-07 12:33] VITALS: TEMP 36.9; O2SAT 99
[2025-01-07 16:38] LABS: BASOPHILS % 1.2 % (0.0-2.0); DIFFERENTIAL COMMENT 0; EOSINOPHILS % 2.6 % (0.0-5.0); HEMATOCRIT. 29.1 % (36.0-48.0); HEMOGLOBIN. 9.2 g/dL (12.0-16.0); LYMPHOCYTES % 18.4 % (20.0-50.0); MEAN CORPUSCULAR HEMOGLOBIN 22.7 pg (28.0-32.0); MEAN CORPUSCULAR HGB CONC 31.5 g/dL (31.0-37.0); MEAN CORPUSCULAR VOLUME 72.2 fL (81.0-99.0); MEAN PLATELET VOLUME 9.3 fl (7.4-10.4); MONOCYTES % 9.6 % (2.0-8.0); NEUTROPHILS % 68.2 % (40.0-76.0); PLATELET 243 x1000/uL (130-400); RED BLOOD CELL COUNT 4.03 mill/uL (4.2-5.4); RED CELL DISTRIBUTION WIDTH 16.2 % (11.6-14.6); WHITE BLOOD COUNT 8.7 x1000/uL (4.5-11.0)
[2025-01-07 16:45] LABS: CHLORIDE 111 mEq/L (98-107); SODIUM 142 mEq/L (136-145)
[2025-01-07 16:46] LABS: CALCIUM 8.7 mg/dL (8.7-10.4); CARBON DIOXIDE 26 mEq/L (21-32)
[2025-01-07 16:51] LABS: CREATININE 0.7 mg/dL (0.6-1.0); GLUCOSE 92 mg/dL (70-105); UREA NITROGEN BLOOD 24 mg/dL (9-23)
[2025-01-07 17:58] VITALS: BP 116/59; PULSE 62; RESP 17; O2SAT 98
== END 2025-01-07 18:18 | disposition home or self-care (01) ==
LOC: ER 12:24
DX: G40.909 Epilepsy, unspecified, not intractable, without status epilepticus (principal); E78.5 Hyperlipidemia, unspecified; J44.9 Chronic obstructive pulmonary disease, unspecified; I10 Essential (primary) hypertension; Z79.52 Long term (current) use of systemic steroids; Z79.899 Other long term (current) drug therapy; Z79.82 Long term (current) use of aspirin; Z79.631 Long term (current) use of antimetabolite agent
CPT/HCPCS: 36415; 80048; 85025; 93005; 99285

== ENCOUNTER 2025-05-08 08:43 | Inpatient (IN) | payer MEDICARE, OTHER ==
[~2025-05-08] VITALS: Ht 160 cm; Wt 63.1 kg
[2025-05-08] MEDS: LEVETIRACETAM 1000MG PREMIX 100 ML IV ONE (09:08)
[2025-05-08 09:16] LABS: BASOPHILS % 0.5 % (0.0-2.0); EOSINOPHILS % 0.6 % (0.0-5.0); HEMATOCRIT. 36.3 % (36.0-48.0); HEMOGLOBIN. 11.1 g/dL (12.0-16.0); LYMPHOCYTES % 24.1 % (20.0-50.0); MEAN PLATELET VOLUME 9.8 fl (7.4-10.4); MONOCYTES % 6.0 % (2.0-8.0); NEUTROPHILS % 68.8 % (40.0-76.0); PLATELET 238 x1000/uL (130-400); RED BLOOD CELL COUNT 5.29 mill/uL (4.2-5.4); RED CELL DISTRIBUTION WIDTH 18.1 % (11.6-14.6)
[2025-05-08 09:20] LABS: ADD RBC MORPHOLOGY YES
[2025-05-08 09:31] LABS: CREATININE 1.1 mg/dL (0.6-1.0); ETHANOL BLOOD < 10 mg/dL (<10); UREA NITROGEN BLOOD 22 mg/dL (9-23)
[2025-05-08 10:06] LABS: PLATELET ESTIMATE NORMAL
[2025-05-08 12:00] VITALS: BP 156/98; PULSE 117; RESP 16; TEMP 36.2; O2SAT 100
[2025-05-08] MEDS ORDERED: ACETAMINOPHEN 325MG TABLET PO PRN (12:15)
[2025-05-08] MEDS ORDERED: ONDANSETRON HCL 4MG/2ML INJ IV PRN (12:15)
[2025-05-08] MEDS ORDERED: LORAZEPAM 2MG/ML UD SYRINGE IV PRN (12:15)
[2025-05-08] MEDS: AMLODIPINE 10MG TABLET PO SCH (14:15)
[2025-05-08 16:00] VITALS: BP 150/86; PULSE 107; RESP 16; TEMP 36.2; O2SAT 97
[2025-05-08 18:40] VITALS: BP 108/64; PULSE 49; RESP 18; TEMP 36.5
[2025-05-08 20:00] VITALS: BP 128/71; PULSE 60; RESP 18; TEMP 36.1; O2SAT 100
[2025-05-08] MEDS ORDERED: NALOXONE HCL 0.4MG/ML VIAL IV PRN (22:15)
[2025-05-08] MEDS: HYDROCODONE/ACETAMINOPHEN 10/325MG TABLET PO PRN (22:21)
[2025-05-08] MEDS: LEVETIRACETAM 1000MG PREMIX 100 ML IV SCH (22:22)
[2025-05-09] VITALS: BP 128/71; PULSE 60; RESP 18; TEMP 36.1
[2025-05-09 04:00] VITALS: BP 140/80; PULSE 69; RESP 17; TEMP 36.3; O2SAT 98
[2025-05-09 08:00] VITALS: BP 130/87; PULSE 106; RESP 16; TEMP 36.1; O2SAT 97
[2025-05-09 12:00] VITALS: BP 133/73; PULSE 92; RESP 16; TEMP 36.1; O2SAT 97
[2025-05-09 16:00] VITALS: BP 128/80; PULSE 96; RESP 17; TEMP 36.4; O2SAT 97
[2025-05-09 20:00] VITALS: BP 129/76; PULSE 63; RESP 18; TEMP 36.1; O2SAT 100
[2025-05-09] MEDS: LEVETIRACETAM 500MG TABLET PO SCH (21:20)
[2025-05-10] VITALS: BP 138/78; PULSE 58; RESP 20; TEMP 36.3; O2SAT 99
[2025-05-10 04:00] VITALS: BP 143/83; PULSE 57; RESP 18; TEMP 36.6; O2SAT 99
[2025-05-10 08:00] VITALS: BP 135/87; PULSE 63; RESP 18; TEMP 36.4; O2SAT 96
[2025-05-10 10:09] LABS: CREATININE 1.0 mg/dL (0.6-1.0); UREA NITROGEN BLOOD 19 mg/dL (9-23)
[2025-05-10] MEDS ORDERED: AMLO5TAB88 MT ×2 (11:11→14:58)
[2025-05-10 12:00] VITALS: BP_SYST 106; BP_SYST 133; BP_DIAS 65; BP_DIAS 73; PULSE 59; PULSE 92; RESP 16; RESP 18; TEMP 36.1; TEMP 36.5; O2SAT 97; O2SAT 99
[2025-05-10 14:26] VITALS: BP 94/62; PULSE 91; TEMP 97.8; O2SAT 99
== END 2025-05-10 15:45 | disposition home or self-care (01) | DRG 812 ==
LOC: ER 08:43 → EDBEDREQ 09:03 → 6WST 10:28 → EDBEDREQ 10:49 → EDBEDREQTM 10:49 → ENRESERV 10:52
PROVIDERS: ADMIT Internal Medicine; ATTEND Internal Medicine
DX: D64.9 Anemia, unspecified (principal); G40.909 Epilepsy, unspecified, not intractable, without status epilepticus; G35 Multiple sclerosis; Z79.899 Other long term (current) drug therapy; Z86.73 Personal history of transient ischemic attack (TIA), and cerebral infarction without residual deficits; Z85.3 Personal history of malignant neoplasm of breast
CPT/HCPCS: 36415; 71045; 80048; 80320; 82542; 85025; 99285; A4606; J1953; G0480